=== PATIENT | female | born 1955 | race Hispanic/Latino ===

== ENCOUNTER 2016-10-24 | Emergency (ER) | payer BC ==
[2016-10-24 00:26] VITALS: BP 131/89; PULSE 56; RESP 16; TEMP 97.9; O2SAT 97
--- NOTE | 2016-10-24 00:39 | ED PDOC ---
HPI: Eye Injury/Pain Time Seen by Provider: 10/24/16 00:39 Chief Complaint (Nursing): Eye Problem Chief Complaint (Provider): FB sensation to eye History Per: Patient Additional Complaint(s): Patient states she was walking when she thinks something flew into her eye. She presents with FB sensation to right eye. Patient usually wears contacts but has not worn them in 2 days. She denies any discharge or tearing from right eye. She denies any direct trauma or injury. Past Medical History Reviewed: Historical Data, Nursing Documentation, Vital Signs Vital Signs: Last Vital Signs Temp 97.9 F 10/24/16 00:23 Pulse 56 L 10/24/16 00:23 Resp 16 10/24/16 00:23 BP 131/89 10/24/16 00:23 Pulse Ox 97 10/24/16 00:23 - Medical History PMH: Hypothyroidism - Surgical History Other surgeries: eye surgery at age 8 - Family History Family History: States: No Known Family Hx - Living Arrangements Living Arrangements: With Family - Social History Current smoker - smoking cessation education provided: No Alcohol: None Drugs: Denies - Home Medications Home Medications: Ambulatory Orders Medication Instructions Recorded Tobramycin [Tobrex] 5 ml TOP QID #1 bottle 10/24/16 - Allergies Allergies/Adverse Reactions: Allergies Allergy/AdvReac Type Severity Reaction Status Date / Time No Known Allergies Allergy Verified 10/24/16 00:23 Review of Systems ROS Statement: Except As Marked, All Systems Reviewed And Found Negative Eyes: Positive for: Other (FB sensation right eye) Neurological: Negative for: Headache, Dizziness Physical Exam - Reviewed Nursing Documentation Reviewed: Yes Vital Signs Reviewed: Yes - Physical Exam Appears: Positive for: Well, Non-toxic, No Acute Distress Skin: Negative for: Rash Eye Exam: Positive for: EOMI, PERRL, Other (slight conjunctival injection right eye with no gross FB, no periorbital swelling or tenderness) Neurologic/Psych: Positive for: Alert, Oriented, Gait (steady) - ECG O2 Sat by Pulse Oximetry: 97 Pulse Ox Interpretation: Normal Medical Decision Making Medical Decision Makin60 year old with FB sensation right eye Procedure Note: 2 drops tetacraine applied to right eye followed by stain with flouroscein strip, corneal abrasion noted at 11:00, no FB noted to cornea or upon lid eversion. Procedure was tolerated well by patient, no complications. Rx tobramycin eye drops given. Advised tylenol for pain and follow up with eye doctor tomorrow. Disposition - Clinical Impression Clinical Impression: Corneal abrasion - Patient ED Disposition Is Patient to be Admitted: No Counseled Patient/Family Regarding: Studies Performed, Diagnosis, Need For Followup, Rx Given - Disposition Referrals: Letty Roman MD [Primary Care Provider] - Esteban Sprague MD [Staff Provider] - Disposition: Routine/Home Disposition Time: 01:22 Condition: STABLE Additional Instructions: Tylenol or advil for pain as needed. Apply drops as directed. Follow up tomorrow with your eye doctor. Prescriptions: Tobramycin [Tobrex] 5 ml TOP QID #1 bottle Instructions: Corneal Abrasion (ED)
== END 2016-10-24 02:15 | disposition home or self-care (01) ==
LOC: H.ER
DX: S05.01XA Injury of conjunctiva and corneal abrasion without foreign body, right eye, initial encounter (principal); S00.211A Abrasion of right eyelid and periocular area, initial encounter; X58.XXXA Exposure to other specified factors, initial encounter; Y93.9 Activity, unspecified